=== PATIENT | male | born 2000 | race Two or more races ===

== ENCOUNTER 2024-04-24 11:53 | Emergency (ER) | payer SELFPAY ==
[2024-04-24] MEDS: Acetaminophen 500 MG Tab PO ONE (12:21)
[2024-04-24] MEDS: Lidocaine 1% 5 ML VIAL INJECT ONE (12:21)
== END 2024-04-24 14:20 | disposition home or self-care (01) ==
LOC: MW.ED 11:53
DX: S61.210A Laceration without foreign body of right index finger without damage to nail, initial encounter (principal); S67.190A Crushing injury of right index finger, initial encounter; Z75.8 Other problems related to medical facilities and other health care; W22.8XXA Striking against or struck by other objects, initial encounter
CPT/HCPCS: 12001; 73140; 99283; A9270; J3490

== ENCOUNTER 2024-05-01 17:12 | Emergency (ER) | payer SELFPAY | END 2024-05-01 18:08 | disposition left against medical advice (07) | LOC: MW.ED 17:12 | DX: Z48.02 Encounter for removal of sutures (principal) ==